=== PATIENT | male | born 1970 ===

== ENCOUNTER 2016-12-24 08:58 | Emergency (ER) | payer OTHER ==
[2016-12-24 09:02] VITALS: O2SAT 96
[2016-12-24] MEDS ORDERED: Naproxen 550 mg Tab PO STA (09:33)
[2016-12-24] MEDS ORDERED: Naproxen 550 mg Tab PO ONE (09:53)
[2016-12-24 10:13] LABS: RBC URINE < 1 /hpf (0-3); URINE BILIRUBIN NEGATIVE (NEGATIVE); URINE BLOOD NEGATIVE (NEGATIVE); URINE COLOR Straw (YELLOW); URINE GLUCOSE (UA) NORMAL (Normal); URINE KETONE NEGATIVE (NEGATIVE); URINE LEUKOCYTE ESTERASE NEG Leu/uL (Negative); URINE PROTEIN NEGATIVE (NEGATIVE); URINE UROBILINOGEN NORMAL mg/dL (0.2-1.0); WBC URINE < 1 /hpf (0-5)
[2016-12-24 10:20] LABS: CHLORIDE 99 mmol/L (98-107); SODIUM 140 mmol/L (132-148)
[2016-12-24 10:21] LABS: POTASSIUM 4.1 mmol/L (3.6-5.2)
[2016-12-24 10:23] LABS: ALB/GLOB RATIO 1.3 (1.0-2.1); ALKALINE PHOSPHATASE 73 U/L (38-126); ALT/SGPT 66 U/L (21-72); AST/SGOT 41 U/L (17-59); BILIRUBIN,TOTAL 0.7 mg/dL (0.2-1.3); BLOOD UREA NITROGEN 16 mg/dL (9-20); CARBON DIOXIDE 26 mmol/L (22-30); GFR AFRICAN-AMERICAN > 60; GLUCOSE,RANDOM 103 mg/dL (75-110); TOTAL PROTEIN 7.5 g/dL (6.3-8.3)
[2016-12-24 10:24] LABS: CALCIUM 9.4 mg/dl (8.6-10.4)
[2016-12-24 10:25] LABS: BASO # 0.1 K/uL (0.0-0.2); BASO % 0.7 % (0.0-2.0); EOS # 0.9 K/uL (0.0-0.7); EOS % 12.2 % (0.0-4.0); HEMATOCRIT 42.5 % (35.0-51.0); LYMPH # 2.3 K/uL (1.0-4.3); LYMPH % 30.1 % (20.0-40.0); MEAN CELL VOLUME 86.1 fL (80.0-94.0); MEAN CORPUSCULAR HEMOGLOBIN 29.1 pg (27.0-31.0); MEAN CORPUSCULAR HGB CONC 33.7 g/dL (33.0-37.0); MONO # 0.5 K/uL (0.0-0.8); WHITE BLOOD COUNT 7.6 K/uL (4.8-10.8)
--- NOTE | 2016-12-24 10:37 | C.PDOC ---
History Of Present Illness 46-year-old male presents to the emergency department with complaints of intermitent, mild chest palpitations and chest "discomfort" since last night. Pain is nonradiating, ot associated with any shortness of breath, abdominal pain , nausea/vomiting. He is alsocomplaining of sensation of numbness/tingling in left leg, admits to history of low back pain that occaisonally radiates to leg. He denies back pain at this time, urinary retention, bowel/bladder incontinence. Time Seen by Provider: 12/24/16 09:16 Chief Complaint (Nursing): Palpitations History Per: Patient History/Exam Limitations: no limitations Onset/Duration Of Symptoms: Days Current Symptoms Are (Timing): Better Severity: Mild Past Medical History Reviewed: Historical Data, Nursing Documentation, Vital Signs Vital Signs: Last Vital Signs Temp 98.3 F 12/24/16 11:57 Pulse 66 12/24/16 11:57 Resp 16 12/24/16 11:57 BP 122/73 12/24/16 11:57 Pulse Ox 96 12/24/16 11:57 - Medical History PMH: HTN, Hypercholesterolemia Family History: States: No Known Family Hx - Social History Hx Alcohol Use: No Hx Substance Use: No - Immunization History Hx Tetanus Toxoid Vaccination: Yes Hx Influenza Vaccination: No Hx Pneumococcal Vaccination: No Review Of Systems Except As Marked, All Systems Reviewed And Found Negative. Constitutional: Negative for: Fever Cardiovascular: Positive for: Chest Pain, Palpitations. Negative for: Edema, Light Headedness Respiratory: Negative for: Shortness of Breath Gastrointestinal: Negative for: Nausea, Vomiting, Abdominal Pain Musculoskeletal: Negative for: Back Pain Neurological: Negative for: Weakness, Numbness, Headache, Dizziness Physical Exam - Physical Exam Appears: Well, Non-toxic, No Acute Distress Skin: Warm, Dry, No Rash Head: Normacephalic Eye(s): bilateral: Normal Inspection Oral Mucosa: Moist Neck: Normal, Supple Chest: Symmetrical, No Tenderness Cardiovascular: Rhythm Regular Respiratory: Normal Breath Sounds, No Rales, No Rhonchi, No Wheezing Gastrointestinal/Abdominal: Normal Exam, Bowel Sounds, Soft, No Tenderness Back: Normal Inspection, No CVA Tenderness, No Vertebral Tenderness, No Paraspinal Tenderness Extremity: Normal ROM, No Pedal Edema Extremity: Bilateral: Atraumatic, Normal Color And Temperature, Normal ROM Pulses: Left Dorsalis Pedis: Normal, Right Dorsalis Pedis: Normal Neurological/Psych: Oriented x3, Normal Motor, Normal Sensation Gait: Steady ED Course And Treatment - Laboratory Results Result Diagrams: 12/24/16 09:49 12/24/16 09:49 ECG: Interpreted By Me, Viewed By Me (NSR 68 bpm, left axis deviation, LVH, no acute ST/T wave changes) ECG Interpretation: No Acute Changes Interpretation Of ECG: Left axis deviation Rate From EC O2 Sat by Pulse Oximetry: 96 (on RA) Pulse Ox Interpretation: Normal - Radiology CXR: Interpreted by Me, Viewed By Me CXR Interpretation: Yes: No Acute Disease. No: Infiltrates Progress Note: Bloodwork, EKG and UA ordered and reviewed. Patient given PO Naproxen and PO Flexeril. 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 Leg symptoms have resolved and he has no chest pain or palpitations. Patient would like to be discharged home. He was instructed to follow up with PMD in 1-2 days, and to have his PMD send him for cardiology eval. Patient understands he should return to ED if symptoms worsen. ) Disposition Counseled Patient/Family Regarding: Studies Performed, Diagnosis, Need For Followup, Rx Given - Disposition Referrals: Shaik Waddell MD [Staff Provider] - Disposition: HOME/ ROUTINE Disposition Time: 11:40 Condition: STABLE Additional Instructions: SEGUIMIENTO CON HERNANDEZ MDICO EN 1-2 [place] USE LOS MEDICAMENTOS QUE ALYSSA NECESARIOS DEVUELVA A LA HASMUKH DE EMERGENCIA SI LOS SNTOMAS EMPEORARAN Prescriptions: Cyclobenzaprine [Cyclobenzaprine HCl] 10 mg PO BID PRN #12 tab PRN Reason: pain/muscle Naproxen [Naprosyn Tab] 375 mg PO BID PRN #20 tab PRN Reason: pain Instructions: Palpitations (ED), Lumbar Radiculopathy (ED) Forms: [facility] (Amharic) Print Language: FILIPINO - POA Present On Arrival: None - Clinical Impression Clinical Impression: Palpitations, Lumbar radiculopathy - Scribe Statement The provider has reviewed the documentation as recorded by the Scribe (Omid Larkin) All medical record entries made by the Scribe were at my direction and personally dictated by me. I have reviewed the chart and agree that the record accurately reflects my personal performance of the history, physical exam, medical decision making, and the department course for this patient. I have also personally directed, reviewed, and agree with the discharge instructions and disposition.
--- NOTE | 2016-12-24 11:08 | RAD ---
PROCEDURE: CHEST RADIOGRAPH, 1 VIEW HISTORY: palpitations COMPARISON: None available. FINDINGS: LUNGS: There are low lung volumes. The lungs are clear. PLEURA: No pneumothorax or pleural fluid seen. CARDIOVASCULAR: Normal. OSSEOUS STRUCTURES: No significant abnormalities. VISUALIZED UPPER ABDOMEN: Normal. OTHER FINDINGS: None. IMPRESSION: No active pulmonary disease.Low lung volumes may be related to poor inspiratory effort.
[2016-12-24 12:00] VITALS: BP 122/73; PULSE 66; RESP 16; TEMP 98.3
--- NOTE | 2016-12-25 13:53 | CARD ---
APPROVED REPORT EKG Measurement Heart [id number] <Conclusion> Normal sinus rhythm Minimal voltage criteria for LVH, may be normal variant Borderline ECG
== END 2016-12-24 12:00 | disposition home or self-care (01) ==
LOC: C.ER 08:58
DX: M54.16 Radiculopathy, lumbar region (principal); R00.2 Palpitations
CPT/HCPCS: 71010; 80053; 81001; 82550; 82553; 84484; 85025; 93005; 99285; G0480

== ENCOUNTER 2018-05-06 18:38 | Emergency (ER) | payer OTHER ==
--- NOTE | 2018-05-06 20:11 | C.PDOC ---
History Of Present Illness 47 year old male presents to the ER with a complaint of chest wall pain and left elbow area pain intermittently for the past few days. Patient states pain worsens with stretching. Denies SOB or diaphoresis. Time Seen by Provider: 05/06/18 19:53 Chief Complaint (Nursing): Upper Extremity Problem/Injury History Per: Patient History/Exam Limitations: no limitations Onset/Duration Of Symptoms: Days, Intermittent Episodes Current Symptoms Are (Timing): Still Present Exacerbating Factor(s): Other (Stretching elbow) Recent travel outside of the [place]: No Past Medical History Reviewed: Historical Data, Nursing Documentation, Vital Signs Vital Signs: Last Vital Signs Temp 98.5 F 05/06/18 18:57 Pulse 80 05/06/18 18:57 Resp 18 05/06/18 18:57 BP 147/79 05/06/18 18:57 Pulse Ox 97 05/06/18 18:57 - Medical History PMH: HTN, Hypercholesterolemia Family History: States: Unknown Family Hx - Social History Hx Alcohol Use: No Hx Substance Use: No - Immunization History Hx Tetanus Toxoid Vaccination: Yes Hx Influenza Vaccination: No Hx Pneumococcal Vaccination: No Review Of Systems Constitutional: Negative for: Fever, Chills Cardiovascular: Negative for: Palpitations Respiratory: Negative for: Cough, Shortness of Breath Gastrointestinal: Negative for: Nausea, Vomiting Musculoskeletal: Positive for: Other (Left elbow pain, Left chest wall pain) Neurological: Negative for: Weakness, Numbness Physical Exam - Physical Exam Appears: Non-toxic Skin: Normal Color, Warm, Dry Head: Atraumatic, Normacephalic Eye(s): bilateral: Normal Inspection Oral Mucosa: Moist Neck: Normal, Supple Chest: Symmetrical, Tenderness (Left anterior) Cardiovascular: Rhythm Regular Respiratory: Normal Breath Sounds, No Rales, No Rhonchi, No Wheezing Gastrointestinal/Abdominal: Soft, No Tenderness Extremity: Normal ROM (x4), Tenderness (Medial aspect of left elbow), Capillary Refill (<2 seconds) Neurological/Psych: Oriented x3, Normal Speech ED Course And Treatment - Laboratory Results Result Diagrams: 05/06/18 20:49 05/06/18 20:49 ECG: Interpreted By Me, Viewed By Me ECG Rhythm: Sinus Rhythm, R BBB ECG Interpretation: No Acute Changes (NSR, IRBBB, borderline tracings.) Interpretation Of ECG: NSR, IRBBB, Borderline tracings. Rate From EC O2 Sat by Pulse Oximetry: 97 (Room air) Pulse Ox Interpretation: Normal - Radiology CXR: Interpreted by Me CXR Interpretation: Yes: No Acute Disease, Other (normal chest film). No: Infiltrates - Other Rad left humerus X-Ray: Interpreted by Me, Viewed By Me Interpretation: Negative Progress Note: EKG, blood work, CXR, and humerus x-ray ordered. IV fluids administered. Disposition Counseled Patient/Family Regarding: Diagnosis - Disposition Referrals: [facility] [Outside] Disposition: HOME/ ROUTINE Disposition Time: 22:57 Condition: STABLE Prescriptions: Naproxen 375 mg PO Q6 #14 tablet Instructions: Chest Pain That Is Not Caused by the Heart (DC), Costochondritis, Tendonitis (DC) Forms: [employer] (Malay) Print Language: VIETNAMESE - POA Present On Arrival: None - Clinical Impression Clinical Impression: Costochondritis, Tendonitis of elbow or forearm - Scribe Statement The provider has reviewed the documentation as recorded by the Scribben Bowman All medical record entries made by the Javonibben were at my direction and personally dictated by me. I have reviewed the chart and agree that the record accurately reflects my personal performance of the history, physical exam, medical decision making, and the department course for this patient. I have also personally directed, reviewed, and agree with the discharge instructions and disposition.
[2018-05-06 20:56] LABS: BASO # 0.1 K/uL (0.0-0.2); BASO % 1.1 % (0.0-2.0); EOS % 13.8 % (0.0-4.0); HEMOGLOBIN 14.8 g/dL (12.0-18.0); LYMPH # 3.1 K/uL (1.0-4.3); LYMPH % 41.9 % (20.0-40.0); MEAN CELL VOLUME 84.4 fL (80.0-94.0); MEAN CORPUSCULAR HEMOGLOBIN 28.8 pg (27.0-31.0); MEAN CORPUSCULAR HGB CONC 34.2 g/dL (33.0-37.0); MEAN PLATELET VOLUME 9.7 fL (7.2-11.7); MONO # 0.4 K/uL (0.0-0.8); MONO % 5.6 % (0.0-10.0); NEUT # 2.8 K/uL (1.8-7.0); NEUT % 37.6 % (50.0-75.0); NRBC % 0.1 % (0.0-2.0); RBC 5.13 Mil/uL (4.40-5.90); RED CELL DISTRIBUTION WIDTH 13.9 % (11.5-14.5); WHITE BLOOD COUNT 7.4 K/uL (4.8-10.8)
[2018-05-06 21:15] LABS: ALB/GLOB RATIO 1.6 (1.0-2.1); ALT/SGPT 64 U/L (21-72); AST/SGOT 54 U/L (17-59); BLOOD UREA NITROGEN 18 mg/dL (9-20); CALCIUM 9.9 mg/dl (8.6-10.4); GFR NON-AFRICAN AMERICAN > 60
[2018-05-06 23:26] VITALS: BP 149/92; PULSE 78; RESP 14; TEMP 98.8; O2SAT 95
--- NOTE | 2018-05-07 08:34 | RAD ---
Date of service: 05/06/2018 HISTORY: chest pain COMPARISON: 12/24/2016 TECHNIQUE: Chest PA and lateral FINDINGS: LUNGS: No active pulmonary disease. PLEURA: No significant pleural effusion identified. No pneumothorax apparent. CARDIOVASCULAR: No aortic atherosclerotic calcification present. Normal cardiac size. No pulmonary vascular congestion. Tortuosity thoracic aorta OSSEOUS STRUCTURES: No significant abnormalities. VISUALIZED UPPER ABDOMEN: Normal. OTHER FINDINGS: None. IMPRESSION: No active disease. No interval pathology noted.
--- NOTE | 2018-05-07 08:36 | RAD ---
PROCEDURE: Radiographs of the left humerus. HISTORY: left upper extremity pain and elbow tenderness COMPARISON: None. FINDINGS: BONES: . No fracture or focal lesion. More faintly perceived is posterior olecranon cortical osseous hypertrophy trace spurring here SOFT TISSUES: Normal. OTHER FINDINGS: None. IMPRESSION: No humeral pathology noted. Comments there is probable posterior olecranon cortical cortical hypertrophy and spurring present. If clinically suspect any concomitant left focal elbow pathology, consider dedicated left elbow x-ray exam.
== END 2018-05-06 23:41 | disposition home or self-care (01) ==
LOC: C.ER 18:38
DX: M94.0 Chondrocostal junction syndrome [Tietze] (principal); M77.8 Other enthesopathies, not elsewhere classified
CPT/HCPCS: 71046; 73060; 80053; 84484; 85025; 96374; 99285; J1885